=== PATIENT | female | born 1995 | race Caucasian/White ===

== ENCOUNTER 2019-01-22 16:40 | Emergency (ER) | payer OTHER ==
[2019-01-22] MEDS ORDERED: FAMOTIDINE 20 MG TABLET PO ONE (16:46)
--- NOTE | 2019-01-22 16:48 | ER Document Report ---
ED Medical Screen (RME) - General Chief Complaint: Allergic Reaction Stated Complaint: POSSIBLE ALLERGIC REACTION Time Seen by Provider: 01/22/19 16:42 Mode of Arrival: Ambulatory Information source: Patient Notes: This 23-year-old female presents emergency department with a history of allergy to peanuts. Reports she is supposed to carry an EpiPen. Reports he went out to eat and she did not bring her EpiPen today and she ate 1 peanut. She reports it was in a bowl of food. Patient took 75 mg of Benadryl prior to arrival. Reports her throat still feels slightly itchy sore. Patient ate the peanut at approximately 1600. Took the 75 mg of Benadryl 30 minutes ago. Patient is talking in a clear voice no distress. Has never been intubated, has never had to use the EpiPen. Reports she is always taking Benadryl before anything happened. I have greeted and performed a rapid initial assessment of this patient. A comprehensive ED assessment and evaluation of the patient, analysis of test results and completion of the medical decision making process will be conducted by additional ED providers. Dictation of this chart was performed using voice recognition software; therefore, there may be some unintended grammatical errors. TRAVEL OUTSIDE OF THE [place] IN LAST 30 DAYS: No - Related Data Allergies/Adverse Reactions: peanuts Allergy (Uncoded 01/22/19 16:42) Past Medical History - Social History Chew tobacco use (# tins/day): No Frequency of alcohol use: None Physical Exam - Vital signs Vitals: Temp Pulse Resp BP Pulse Ox 98.1 F 62 18 146/76 H 99 01/22/19 16:42 01/22/19 16:42 01/22/19 16:42 01/22/19 16:42 01/22/19 16:42 Course - Vital Signs Vital signs: Temp Pulse Resp BP Pulse Ox 98.1 F 62 18 146/76 H 99 01/22/19 16:42 01/22/19 16:42 01/22/19 16:42 01/22/19 16:42 01/22/19 16:42
[2019-01-22] MEDS ORDERED: DEXAMETHASONE SOD PHOS INJ 10 MG/1 ML VIAL IM ONE (17:52)
--- NOTE | 2019-01-22 18:06 | ER Document Report ---
HPI - HPI Time Seen by Provider: 01/22/19 16:42 Pain Level: Denies Notes: Patient is a 23-year-old female with no significant past medical history who presents complaining of eating 1 peanut 2 hours ago. Patient states that she immediately took Benadryl thereafter she started to feel some tingling in the back of her throat. Patient states that she has never been in a true anaphylactic shock and has never had to be intubated or hospitalized. Patient states that she does have an EpiPen, but did not have it on her so she did not use it. Patient has been seen at triage and was given Pepcid. Patient did take 75 mg of Benadryl prior to arrival. Patient states that she is currently feeling much better than she was 1.5hrs ago. Patient states that she will every not again feel a little tingle in the back of her mouth/throat, but has not felt any swelling. She has not had any rash. She is able to eat and drink without difficulty. She is urinating normally. No other concerns or complaints. No recent illness. Denies any headache, fever, neck pain, changes in vision/speech/mentation/hearing, excessive drooling, hoarseness, swelling of the lip/tongue/throat, URI, sore throat, chest pain, palpitations, syncope, cough, shortness of breath, wheeze, dyspnea, abdominal pain, nausea/vomiting/diarrhea, urinary retention, dysuria, hematuria, loss of control of bowel or bladder, numbness/tingling, saddle anesthesia, muscle paralysis/weakness, or rash. - ROS Systems Reviewed and Negative: Yes All other systems reviewed and negative - REPRODUCTIVE Reproductive: DENIES: : Past Medical History - General Information source: Patient - Social History Smoking Status: Never Smoker Chew tobacco use (# tins/day): No Frequency of alcohol use: None Family History: Reviewed & Not Pertinent Patient has suicidal ideation: No Patient has homicidal ideation: No Vertical Provider Document - CONSTITUTIONAL Agree With Documented VS: Yes Notes: PHYSICAL EXAMINATION: GENERAL: Well-appearing, well-nourished and in no acute distress. A&Ox4. Answers questions appropriately. Moves comfortably w/o notable distress HEAD: Atraumatic, normocephalic. EYES: Pupils equal round and reactive to light, extraocular movements intact, sclera anicteric, conjunctiva are normal. ENT: EAC clear b/l. TM's intact b/l without erythema, fluid, or perforation. Nares patent and with clear discharge. oropharynx no erythema without exudates. No tonsilar hypertrophy without erythema or exudate. No palatine shift. Uvula midline. No tongue protrusion. No drooling, hoarseness, or airway compromise. Moist mucous membranes. No sinus tenderness. No evidence of angioedema. NECK: Normal range of motion, supple without lymphadenopathy. No rigidity/meningismus. LUNGS: Breath sounds clear to auscultation bilaterally and equal. No wheezes rales or rhonchi. No retractions HEART: Regular rate and rhythm without murmurs, rubs, gallops. ABDOMEN: Soft, nontender, nondistended abdomen. No guarding, no rebound. Normal bowel sounds present. No CVA tenderness bilaterally. NEUROLOGICAL: Normal speech, normal gait. PSYCH: Normal mood, normal affect. SKIN: Warm, Dry, normal turgor, no rashes or lesions noted. - INFECTION CONTROL TRAVEL OUTSIDE OF THE [place] IN LAST 30 DAYS: No Course - Re-evaluation Re-evalutation: 01/22/19 18:02 Patient is an afebrile, well-hydrated, 23-year-old female who presents with a mild allergic reaction secondary to peanut ingestion. Vitals are acceptable without significant tachycardia, tachypnea, or hypoxia. PE is otherwise unremarkable. Patient is nontoxic-appearing and is tolerating p.o. without difficultly. Patient is feeling much better than she was. She has not had any worsening symptoms. Patient took 75 mg of Benadryl just prior to arrival and 20 mg of Pepcid at triage. Patient given 10 mg of Decadron at this time. No further work-up warranted. Patient would like to go home as she is feeling much better. Low suspicion for any angioedema, meningitis, sepsis, peritonsillar/pharyngeal abscess, respiratory compromise, Jamel's, or other emergent systemic condition at this time. Patient is aware this condition can change from initial presentation and she needs to monitor symptoms closely. Patient does have an EpiPen as well as an inhaler at home use if needed. Conservative measures otherwise for symptoms. Recheck with your PCM in 2-3 days. Return to the ED with any worsening/concerning symptoms otherwise as reviewed in discharge. Patient is in agreement. - Vital Signs Vital signs: Temp Pulse Resp BP Pulse Ox 98.1 F 62 18 146/76 H 99 01/22/19 16:42 01/22/19 16:42 01/22/19 16:42 01/22/19 16:42 01/22/19 16:42 Discharge - Discharge Clinical Impression: Allergic reaction Qualifiers: Encounter type: initial encounter Qualified Code(s): T78.40XA - Allergy, unspecified, initial encounter Condition: Stable Disposition: HOME, SELF-CARE Additional Instructions: Maintain adequate fluid intake Benadryl/Pepcid as needed EpiPen/inhaler as needed Avoid allergy F/u: with your PCM in 2-3 days for a recheck Consider consult with ENT for ongoing/worsening symptoms Return to the ED with any fever, pain, swelling of the lip/tongue/throat, chest pain, neck pain/stiffness, shortness of breath, cough, drooling, trouble swallow ing/breathing, wheezing, changes in mentation or behavior/speech, abdominal pain, n/v/d, rash, or worsening/concerning symptoms otherwise. Forms: Elevated Blood Pressure Referrals: MARIA INES PLASENCIA DO [ASSOCIATE] - Follow up as needed
[2019-01-22 18:14] VITALS: BP 132/74
== END 2019-01-22 18:14 | disposition home or self-care (01) ==
LOC: ER 16:40
DX: T78.1XXA Other adverse food reactions, not elsewhere classified, initial encounter (principal); R09.89 Other specified symptoms and signs involving the circulatory and respiratory systems
CPT/HCPCS: 99283; 96372; J1100